=== PATIENT | male | born 1985 | race Caucasian/White ===

== ENCOUNTER 2017-03-31 22:33 | Emergency (ER) | payer OTHER ==
[2017-03-31 22:40] VITALS: BP 149/88
[2017-03-31] MEDS ORDERED: Ketorolac 60 MG/2 ML SDV IM ONE (22:56)
--- NOTE | 2017-03-31 22:56 | EDM.PDOC ---
ED HPI GENERAL MEDICAL PROBLEM - General Chief Complaint: Back Pain or Injury Stated Complaint: LOWER BACK PAIN Time Seen by Provider: 03/31/17 22:45 Source of Information: Reports: Patient History Limitations: Reports: No Limitations - History of Present Illness INITIAL COMMENTS - FREE TEXT/NARRATIVE: 31 yo gentleman with past medical history significant for Morbid obesity, Chronic LBP s/p 2 prior Back surgeries -- last surgery was in 2014. He chronically takes Gabapentin for chronic back pain. Presented to the ER today with acute exacerbation of chronic LBP. Reports that he when he stood up, he suddenly heard a pop on his Lower back and immediately developed sudden onset pain on his lower back which he rates as 9/10. Unsure of any Lower extremity numbness. Denied any bladder or bowel dysfunction. Presented to the ER on account of worsening of symptoms. Onset: Today Duration: Day(s): (occurred this evening.) Location: Reports: Back Quality: Reports: Sharp Improves with: Reports: None Worsens with: Reports: Movement Associated Symptoms: Reports: No Other Symptoms Lower Back Pain Score (Numeric/FACES): 8 - Related Data Allergies Allergy/AdvReac Type Severity Reaction Status Date / Time No Known Allergies Allergy Verified 03/31/17 22:45 Home Meds: Home Meds Cyclobenzaprine [Flexeril] 10 mg PO TID PRN #20 tab 03/31/17 [Rx] Gabapentin [Neurontin] 300 mg PO TID 03/31/17 [History] sitaGLIPtin Phos/Metformin HCl [Janumet Xr 50-1,000 mg Tablet] 1 cap PO DAILY [History] traMADol [Ultram] 50 mg PO Q6H PRN #20 tab 03/31/17 [Rx] Past Medical History Musculoskeletal History: Reports: Back Pain, Chronic Endocrine/Metabolic History: Reports: Diabetes, Type II - Infectious Disease History Infectious Disease History: Reports: Chicken Pox - Past Surgical History Musculoskeletal Surgical History: Reports: Other (See Below) Other Musculoskeletal Surgeries/Procedures:: back surgury x 2 Social & Family History - Caffeine Use Caffeine Use: Reports: Coffee - Recreational Drug Use Recreational Drug Use: No ED ROS GENERAL - Review of Systems Review Of Systems: ROS reveals no pertinent complaints other than HPI. ED EXAM,LOWER BACK PAIN/INJURY - Physical Exam Exam: See Below Exam Limited By: No Limitations General Appearance: Alert, WD/WN, No Apparent Distress Eye Exam: Bilateral Eye: EOMI Ears: Normal External Exam, Normal Canal, Hearing Grossly Normal, Normal TMs Nose: Normal Inspection, Normal Mucosa, No Blood Throat/Mouth: Normal Inspection, Normal Lips, Normal Teeth, Normal Oropharynx Head: Atraumatic, Normocephalic Neck: Normal Inspection, Supple, Non-Tender Respiratory/Chest: No Respiratory Distress, Lungs Clear, Normal Breath Sounds, No Accessory Muscle Use, Chest Non-Tender Cardiovascular: Normal Peripheral Pulses, Regular Rate, Rhythm, No Edema, No JVD , No Murmur GI/Abdominal: Normal Bowel Sounds, Soft, Non-Tender, No Organomegaly, No Distention, No Abnormal Bruit Back Exam: Muscle Spasm, Paraspinal Tenderness, Vertebral Tenderness (Lumbar vertebral tenderness) Extremities: Normal Inspection, Normal Range of Motion, Non-Tender, No Pedal Edema, Normal Capillary Refill Neurological: Alert, Normal Mood/Affect, Normal Dorsiflexion, CN II-XII Intact, Normal Plantar Flexion, Normal Gait Psychiatric: Normal Affect, Normal Mood Skin Exam: Warm, Dry, Intact, Normal Color Lymphatic: No Adenopathy Course - Vital Signs Last Recorded V/S: Last Vital Signs Temp 36.3 C 03/31/17 22:33 Pulse 91 03/31/17 22:33 Resp 18 03/31/17 22:33 BP 149/88 H 03/31/17 22:33 Pulse Ox 98 03/31/17 22:33 - Orders/Labs/Meds Meds: Medications Discontinued Medications Generic Name Dose Route Start Last Admin Trade Name Freq PRN Reason Stop Dose Admin Cyclobenzaprine HCl 10 mg 03/31/17 22:57 03/31/17 23:01 Flexeril PO 03/31/17 22:58 10 mg ONETIME ONE Administration Ketorolac Tromethamine 60 mg 03/31/17 22:56 03/31/17 23:01 Toradol IM 03/31/17 22:57 60 mg ONETIME ONE Administration Departure - Departure Time of Disposition: 23:17 Disposition: Home, Self-Care 01 Condition: Good Clinical Impression: Back pain Qualifiers: Back pain location: low back pain Chronicity: acute Back pain laterality: unspecified Sciatica presence: without sciatica Qualified Code(s): M54.5 - Low back pain - Discharge Information Prescriptions: Cyclobenzaprine [Flexeril] 10 mg PO TID PRN #20 tab PRN Reason: back spasm traMADol [Ultram] 50 mg PO Q6H PRN #20 tab PRN Reason: Pain Instructions: Low Back Sprain With Rehab-SportsMed Referrals: PCP,None [Primary Care Provider] - Forms: ED Department Discharge Additional Instructions: Follow with PCP Tramadol for back pain Flexeril for back spasms Return if symptoms worsen Call your Physician or Return to Emergency Department if: * Your condition worsens in any way. * You develop fever greater than 100.4. * You have vomitting that does not stop with medications. * You have pain that is not controlled with medications.
[2017-03-31] MEDS ORDERED: Cyclobenzaprine 10 MG Tab PO ONE (22:57)
== END 2017-03-31 23:05 | disposition home or self-care (01) ==
LOC: FB.ED 22:33
DX: M54.5 Low back pain (principal); E11.9 Type 2 diabetes mellitus without complications; Z98.890 Other specified postprocedural states; Z79.84 Long term (current) use of oral hypoglycemic drugs
CPT/HCPCS: 96372; 99283; A9270; J1885